=== PATIENT | male | born 1950 | race Caucasian/White ===

== ENCOUNTER 2024-08-18 06:04 | Inpatient (IN) | payer OTHER, SELFPAY ==
[2024-08-12 10:39] VITALS: BMI 31.1
[2024-08-18] VITALS (17 sets, daily range): BP systolic 113–140; BP diastolic 68–80; PULSE 64–88; RESP 12–20; TEMP 35.6–36.6; O2SAT 92–97; BMI 31.1
[2024-08-18] MEDS: ACETAMINOPHEN 325 MG TABLET 975 MG PO (06:49)
[2024-08-18] MEDS: LACTATED RINGERS 1,000 ML 42 ML IV ×2 (06:55→09:31)
--- NOTE | 2024-08-18 07:42 | PM.PREOP ---
Pre-operative Note Interval Note History & Physical reviewed/Exam performed by Physician: Yes Changes to H&P: No
[2024-08-18] MEDS: CEFAZOLIN 2 GM/100 ML PREMIX 100 ML IV ×3 (07:55→23:27)
--- NOTE | 2024-08-18 08:18 | SUR.OPER ---
Prone on spine table, head in foam head support, padded chest and pelvic supports, gel pad at knees, lower legs supported by pillows; nipples, genitalia and toes free of pressure, arms secured on foam padded arm boards at <90 degrees abduction. Tape over blanket at thigh secured to table.
[2024-08-18] MEDS: BUPIVACAINE 0.25% (PF) 60 ML, EPINEPHrine 0.15 MG INJ (08:22)
[2024-08-18] MEDS: BUPIVACAINE LIPOSOME 266 MG/20 ML VIAL INJ (09:42)
--- NOTE | 2024-08-18 09:58 | P.OP_ITS ---
Operative Date/Time/Diagnoses Date of procedure: 08/18/24 Time of procedure: 07:40 Pre-op diagnosis: 1. L3-4, L4-5 spinal stenosis 2. L4-5 history of laminectomy with bilateral foraminal stenosis Post-op diagnosis: same Procedure & Clinicians Procedure: 1. L4-5 Postero-lateral and posterior interbody fusion 2. L4-5 interbody cage placement. 3. L4-5 decompressive laminectomy with bilateral facetecomies 4. L4-5 Posterior non-segmental instrumentation 5. L3-4 left hemilaminectomy 6. [place] of bone marrow from iliac crest 7. Utilization of microsurgical technique and operating microscope Same procedure as scheduled: Yes Indications: Patient has been having chronic back pain and worsening lumbar radiculopathy. Patient was found to have significant central stenosis at L3-4 and severe bilateral foraminal stenosis at L4-5 correlating with his symptoms. Patient failed multiple conservative management with worsening pain weakness and numbness in his lower extremity. Patient has been having difficulty performing activity of daily living. After discussing risks benefits of treatment options, patient elected proceed with surgery. Surgeon: Sumeet Orellana Office Services Assistant: Yareli Garner Click Yes if Unassisted: No Anesthesia Type: General Operative Notes Closure Type: primary Specimen(s): none sent Prosthetic devices, grafts, tissues, transplants, or devices: Globus revolve screws, Rise cage Estimated Blood Loss (mL): 50 Blood products transfused: none Procedure in detail: Patient was seen in the preoperative area. Risks and benefits of the surgery was discussed with the patient. Informed consent was obtained from the patient and placed in the chart. Surgical site was marked. Patient was taken to the operative room. General anesthesia was administered. Prophylactic antibiotic was given to the patient less than 30 min before the incision was made. Patient was placed into a prone position on the Desmond table. Patient's back was then prepped and draped in the sterile fashion. Time-out was performed at this time. Using AP and lateral C-arm imaging the interval between L4-5 was identified and marked on patient's back. A 2 inch incision 2 in from midline was made on the left side first. The fascia was incised in line with skin incision. Globus MARS retractors was placed inside the incision and docked onto the L4 lamina. Using microsurgical technique and operating microscope, a L4 laminectomy and L4-5 facetectomy was performed using a Kerrison rongeur. The laminectomy and facetectomy was performed in order to decompress patient's cauda equina as well as the nerve roots exiting at the L4-5 level. The disc space at L4-5 was identified. And a total diskectomy was performed at [] level. The endplates were decorticated using a rasp and shaver. The total diskectomy and decortication was performed at L4-5 level in order to to accomplish a L4-5 fusion. The local bone from the laminectomy and facetectomy was saved for local bone grafting. After the total diskectomy and decortication was completed, Globus viacell bone graft material was combined with local bone that was harvested earlier. At this time, a separate skin is incision was made over the iliac crest. A Jamshidi needle was inserted into the iliac crest through a separate skin incision. 5 cc of bone marrow aspiration was obtained through the separate skin incision using a Jamshidi needle from the iliac crest. The bone marrow aspiration was combined with local bone and the via cell bone grafting material. The bone grafting material was placed into the L4-5 interbody space along with a expandable cage. The cage was expanded to its maximum height using the torque limiting screwdriver. At this time the MARS retractor was redirected over the L3 lamina. Using microsurgical technique and operating microscope, a L3-4 heminectomy was performed using the Kerrison rongeur. The ligamentum flavum was also resected at the side of the hemilaminectomy for further decompression of the epidural space. At this time a mirror image incision was made on the right side. The fascia was incised in line with the skin incision. Globus MARS retractor was inserted and docked onto the L4-5 posterolateral gutter. Using the power drill, posterior- lateral decortication was performed at L4-5 level until bleeding cortical bone was identified. The remaining bone grafting material was placed into the L4-5 posterior lateral gutter he order to accomplish posterolateral fusion at the L4-5 level. Using the double C-arm technique, pedicle screws were placed into the L4 and L5 pedicles bilaterally. This was done by placing the Jamshidi needle into the pedicles, then placing the guidewires over the Jamshidi needle, and finally placing the cannulated screws over the guidewires bilaterally. After the pedicle screws were placed, 2 titanium rods was locked into the heads of the pedicle screws using locking caps and torque limiting screwdriver. After all the hardware was placed, and confirmed with AP and lateral C-arm imaging, the wound was then irrigated with sterile normal saline and packed with Ray-Gaudencio gauze for 3 min to accomplish hemostasis. After the gauze was removed the deep fascia was closed with #1 Vicryl suture. The subcutaneous layer was closed with 2-0 Vicryl. The skin was closed with skin chano. Patient tolerated the procedure well. There were no complications. Neuro monitoring was utilized throughout the entire case. Patient has signal was stable throughout entire procedure without disturbance. The Operation could not have been safely performed without compromising the technical result or length of the procedure, without the assistance of a skilled dental assistant medical assistant. The dental assistant medical assistant was medically necessary for proper positioning, retraction and manipulation of instruments, proper exposure, surgi junie preparation, and manipulation of tissue. Complications: none Post-operative Condition: stable Disposition: PACU Plan for aftercare: Admit to inpatient hospital
--- NOTE | 2024-08-18 10:07 | DI.RAD.S_ITS ---
PROCEDURE: XR LUMBAR SPINE 2-3V INDICATIONS: L4-5 TLIF TECHNIQUE: Two views of the lumbar spine were acquired. COMPARISON: None. FINDINGS: AP and lateral digital images from the OR are submitted. L4-5 anterior/posterior fusion provided by interbody spacer, pedicle screws and short interbody struts appreciated. Alignment is anatomic. Moderate L2-3, L3-4 and L5-S1 degenerative disc and facet disease noted. IMPRESSION: L4-5 anterior/posterior fusion anatomic alignment. Dictated by: Priyank Henriquez M.D. on 08/19/2024 at 9:11 Approved by: Priyank Henriquez M.D. on 08/19/2024 at 9:13
[2024-08-18] MEDS: HYDROMORPHONE 1 MG INJ IV ×2 (10:15→10:20)
[2024-08-18] MEDS: hydrOXYzine 50 MG/ML INJ 25 MG IM (10:23)
[2024-08-18] MEDS: ONDANSETRON 4 MG/2 ML INJ IV (10:25)
[2024-08-18] MEDS: OXYCODONE IR 5 MG TABLET PO ×5 (10:27→22:18)
--- NOTE | 2024-08-18 13:50 | OT.IP.EVAL ---
Current Diagnoses Spinal stenosis, lumbar region without neurogenic claudication (08/18/24) Spinal stenosis, lumbosacral region (08/18/24) Other specified postprocedural states (08/18/24) Surgery Performed Operation Date: 08/18/24 07:45 Actual Procedures p L4-5 TLIF L3-4 hemilaminectomy - Sumeet Orellana MD Past Medical History (Last Updated 08/12/24 @ 12:07 by Anaid Estrella RN) BCC (basal cell carcinoma) Spinal stenosis Surgical History (Last Updated 08/12/24 @ 12:07 by Anaid Estrella RN) H/O right wrist surgery H/O: vasectomy History of ankle surgery Hx of hernia repair Hx of lithotripsy Hx of repair of right rotator cuff Hx of spinal surgery Hx of tonsillectomy Occupational Therapy Inpatient Evaluation/Re-Eval M1 PT/OT-IP Prior Functional Status Start: 08/18/24 13:25 Freq: NEEDED Status: Active Protocol: Document 08/18/24 16:03 CGR (Rec: 08/18/24 16:23 [id number] Medical Review Prior Functional Status Medical History Reviewed Yes Diet/Fluid Consistency Regular Communication WNLs Mobility and Gait I Activities of Daily Living and IADL's I Social History Household Members spouse Living Arrangements House Number of Floors (Floors) One Floor Number of Stairs To Enter/Railing? 2 steps and no rail to enter Home Environment High Toilet,Tub/Shower Home Equipment Front Wheel Walker,Straight Cane Employment Status Retired Additional Social History Comment Bed adjusts at the top M2 OT-IP Current Condition Start: 08/18/24 16:03 Freq: Status: Active Protocol: Document 08/18/24 16:03 CGR (Rec: 08/18/24 16:23 CGR [id number]) Occupational Therapy Current Condition Current Condition Evaluation Date 08/18/24 Treatment Diagnosis L3-4 and L4-5 TLIF Diagnosis Onset Date 08/18/24 Post Operative Precautions Lumbar Precautions Log Roll,No Twisting,Limit Bending,Lifting Restriction of 10 lbs,Gait Belt above Incisional Area M3 OT- IP Subjective and Pain Start: 08/18/24 16:03 Freq: Status: Active Protocol: Document 08/18/24 16:03 CGR (Rec: 08/18/24 16:23 CGR [id number]) OT- Subjective Occupational Therapy Visit Type Type Initial Evaluation Visit Start Time 13:26 Visit Stop Time 13:50 Notes Partial co-treat with P.T. OT Pain Assessment Pain When Pain Assessed During Mobility Pain Present Pain Present Pain Reported Location low back Intensity 5 Scale Used Numeric (0 - 10) Management Techniques Modification of Treatment,Re- positioning,Timing of Activity with Medications M4 OT- IP ADL's Start: 08/18/24 16:03 Freq: Status: Active Protocol: Document 08/18/24 16:03 CGR (Rec: 08/18/24 16:23 CGR [id number]) OT [id number]-Zobdyvy Comments OT Self-Feeding Comments Not meal time OT ADL-Grooming Comments OT Grooming Comments Not performed, pt lethargic OT ADL-Oral Care Comments Oral Care Comments Not performed, pt lethargic OT ADL-Dressing Comments OT Dressing Comments Not performed, pt lethargic OT ADL-Toileting General Evaluation Toileting Ability Standby Assistance Comments OT Toileting Comments seated on toilet for urination , pt left in bathroom with nursing aid at end of session. OT ADL-Bathing Comments OT Bathing Comments not performed M5 OT- IP IADL's Start: 08/18/24 16:03 Freq: Status: Active Protocol: Document 08/18/24 16:03 CGR (Rec: 08/18/24 16:23 CGR [id number]) OT-Instrumental Activities of Daily Living Deficits IADL Deficits Identified No Deficits Home Safety Awareness Awareness of Need for Assistance at Home Good Awareness Ability to Problem Solve Emergency Able to Problem Solve Situations Medication Management Medication Management No Deficits Identified Money Management Money Management No Deficits Identified Meal Preparation Meal Preparation Caregiver Provides Assist Mandrel Press Hand Mandrel Press Hand Caregiver Provides Assist Driving Driving Comments 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 M6 OT- IP Functional Cognition Start: 08/18/24 16:03 Freq: Status: Active Protocol: Document 08/18/24 16:03 CGR (Rec: 08/18/24 16:23 CGR [id number]) Cognitive Factors Limiting Selfcare Function Cognitive Ability Level of Alertness Alert,Drowsy Patient Orientation Name,Age,Birthday,Month,Date, Year,Day of Week,Place, Situation Attention Span Ability Capable of Focused Attention, Capable of Sustained Attention Ability to Follow Commands Able to Follow One Step Commands with Increased Time, Able to Follow One Step Commands with Repetition OT- Vision and Hearing OT- Hearing Assessment OT- Hearing Assessment WFL OT- Vision Assessment Visual Acuity Glasses For Reading Visual Attentiveness WFL Occular Pursuits WFL Visual Convergence WFL M7 OT- IP Mobility and Balance Start: 08/18/24 16:03 Freq: Status: Active Protocol: Document 08/18/24 16:03 CGR (Rec: 08/18/24 16:23 CGR [id number]) OT- Bed Mobility Assessment Rolling Type of Rolling Log Rolling,Roll to Left Level of Assistance Minimal Assistance Supine to Sit Supine to Sit Assist Standby Assistance Scooting Scooting to Edge of Bed Standby Assistance OT-Transfer Assessment Sit to and From Stand Sit to and from Stand Contact Guard Assistance, Minimal Assistance Transfers Transfer Ability Contact Guard Assistance, Minimal Assistance Technique Transfer Destination Bed,Chair,Toilet Transfer Technique Stand Step Pivot Devices Transfer Assistive Devices Gait Belt,Front Wheeled Walker Comments Mobility Comments Pt initially ambulated to the chair then later in the session states that he need to go to the toilet. Pt ambulated from chair to toilet and left sitting on toielt with nursing aid. OT- Gait Assessment Gait Gait Assistance Required: Contact Guard Assist,Minimum Assistance Assistive Devices Assistive Device Gait Belt,Front Wheeled Walker Comments Gait Ability Comments Mobility in the room OT- Balance Assessment Sitting Balance and Reactions Static Sitting Balance Ability Normal Dynamic Sitting Balance Ability Normal M8 OT- IP Objective Assessments Start: 08/18/24 16:03 Freq: Status: Active Protocol: Document 08/18/24 16:03 CGR (Rec: 08/18/24 16:23 CGR [id number]) OT Gross Range of Motion Upper Extremity Range of Motion Assessment Within Functional Limits OT Strength Upper Extremity Strength Assessment Within Functional Limits Comments Strength Comments grossly 4+/5 OT- Coordination Assessment Upper Extremity Finger to Nose Test Within Functional Limits Finger Tapping Test Within Functional Limits OT-Muscle Tone Assessment Muscle Tone WNL Yes OT Sensation Assessment Edema Edema Absent M9 OT- IP Assessment and Plan Start: 08/18/24 16:03 Freq: Status: Active Protocol: Document 08/18/24 16:03 CGR (Rec: 08/18/24 16:23 CGR [id number]) OT Summary Assessment and Plan Potential Rehabilitation Potential Excellent Analytic Complexity at Evaluation Moderate Summary OT Impairments Pain,Balance,Functional Cognition,Functional Mobility, Grooming,Dressing,Toileting, Bathing,Toilet Transfers, Shower Transfers,Activity Tolerance Progress Towards Goals Progressing Toward Goals Assessment Summary Pt presents as a moderate complexity evaluation s/p admit for planned L3-4 and L4- 5 TLIF. Pt is moving well after sx with manageable pain. Pt's present and supportive. Plan is for discharge home tomorrow. Pt will need LB dressing training and review of back precautions as he was groggy in todays session. Goals Self-Feeding Goal Independent Grooming Goal Independent Dressing Goal Independent,Barrer And Tacker,Sock Aid Toileting Goal Independent Bathing Goal Independent Toilet Transfer Goal Independent Shower Transfer Goal Independent Days to Meet Goals 2 Frequency of Treatment Other frequency 5x per week Treatment Plan OT Treatment Plan ADL Training,Functional Mobility,Patient/Family Education,Discharge Planning Other Treatment Recommendations and Next LB dressing with DME, review Treatment Focus back precautions Discharge Recommendations OT Discharge Recommendations Home with Assistance Transportation Needs at Discharge Private Vehicle
--- NOTE | 2024-08-18 13:55 | PT.IIE ---
Current Diagnoses Spinal stenosis, lumbar region without neurogenic claudication (08/18/24) Spinal stenosis, lumbosacral region (08/18/24) Other specified postprocedural states (08/18/24) Surgery Performed Operation Date: 08/18/24 07:45 Actual Procedures p L4-5 TLIF L3-4 hemilaminectomy - Sumeet Orellana MD Surgical History (Last Updated 08/12/24 @ 12:07 by Anaid Estrella RN) H/O right wrist surgery H/O: vasectomy History of ankle surgery Hx of hernia repair Hx of lithotripsy Hx of repair of right rotator cuff Hx of spinal surgery Hx of tonsillectomy Medical History (Last Updated 08/12/24 @ 12:07 by Anaid Estrella RN) BCC (basal cell carcinoma) Spinal stenosis Physical Therapy Inpatient Evaluation/Re-Eval M1 PT/OT-IP Prior Functional Status Start: 08/18/24 13:25 Freq: NEEDED Status: Active Protocol: Document 08/18/24 13:25 MB (Rec: 08/18/24 13:55 MB [id number]) Medical Review Prior Functional Status Medical History Reviewed Yes Diet/Fluid Consistency Regular Communication WNLs Mobility and Gait I Activities of Daily Living and IADL's I Social History Household Members spouse Living Arrangements House Number of Floors (Floors) One Floor Number of Stairs To Enter/Railing? 2 steps and no rail to enter Home Environment High Toilet,Tub/Shower Home Equipment Front Wheel Walker,Straight Cane Employment Status Retired Additional Social History Comment Bed adjusts at the top M2 PT-IP Current Condition Start: 08/18/24 13:25 Freq: NEEDED Status: Active Protocol: Document 08/18/24 13:25 MB (Rec: 08/18/24 13:55 MB [id number]) Physical Therapy Current Condition Current Condition Evaluation Date 08/18/24 Treatment Diagnosis L3-4 hemilaminectomy and L4-5 TLIF M3 PT-IP Subjective Start: 08/18/24 13:25 Freq: NEEDED Status: Active Protocol: Document 08/18/24 13:25 MB (Rec: 08/18/24 13:55 MB [id number]) Subjective Physical Therapy Visit Type Type Initial Evaluation Visit Start Time 13:25 Visit Stop Time 13:[address] COLLECTIONS OFFICER Visits 0 Physical Therapy Visit Comments Patient Comments Pt is agreeable to OOB and mobility. Therapy Pain Assessment Pain When Pain Assessed At Rest Pain Present Pain Present Pain Reported Location low back Intensity 5 Scale Used Numeric (0 - 10) M4 PT-IP Mobility and Gait Start: 08/18/24 13:25 Freq: NEEDED Status: Active Protocol: Document 08/18/24 13:25 MB (Rec: 08/18/24 13:55 MB [id number]) PT-Bed Mobility Assessment Rolling Type of Rolling Log Rolling,Roll to Left Level of Assist Contact Guard Assistance Supine to Sit Supine to Sit Contact Guard Assistance,1 Person Assistance,Head of Bed Elevated,Bedrails Scooting Scooting to Edge of Bed Contact Guard Assistance PT-Transfer Assessment Sit to and From Stand Sit to and from Stand Minimal Assistance Equipment Transfer Assistive Device Gait Belt,Front Wheeled Walker Orthotic/Prosthetic Devices or Brace: No Transfers Transfer Destination Chair Transfer Technique Stepping Transfer Ability Level of Assist Minimal Assistance,1 Person Assistance,Use of Upper Extremities Comments Mobility Comments BP and HR in RUE: supine 133/ 77, 84; standing machine does not read; standing 1' 125/78, 95. Gait Assessment Gait Gait Assistance Required: Minimum Assistance Distance (Feet) 3 Able to Maintain Weight Bearing Status Yes During Gait Assistive Devices Assistive Device Gait Belt,Front Wheeled Walker Orthotic/Prosthetic Devices or Brace: No Gait Deviations General Gait Pattern Antalgic,Decreased Stride Length,Decreased Feet Clearance,Step-to Gait,Wide Based Gait Factors Limiting Gait Function Factors Limiting Gait Function Decreased Activity Tolerance, Difficulty Following Directions,Limited Range of Motion,Pain,Poor Balance PT-Balance Assessment Sitting Balance and Reactions Static Sitting Balance Ability Good Dynamic Sitting Balance Ability Fair Standing Balance and Reactions Static Standing Balance Ability Good Dynamic Standing Balance Ability Fair Device Used RW M5 PT-IP Objective Assessments Start: 08/18/24 13:25 Freq: NEEDED Status: Active Protocol: Document 08/18/24 13:25 MB (Rec: 08/18/24 13:55 MB [id number]) Orientation Orientation/Cognition Level of Alertness Alert Orientation Name,Age,Birthday,Month,Date, Year,Place,Situation Language Function Ability No Deficits Noted Safety Awareness Decreased Safety Awareness Memory Description No Deficits Noted Gross Range of Motion Upper Extremity ROM Impairments Defer to OT Lower Extremity ROM Assessment Within Functional Limits Strength Lower Extremity Strength Assessment Within Functional Limits Comments Strength Comments LE ROM and strength functionally assessed and are normal today Coordination Assessment Gross Coordination Gross Coordination Impaired Assessment Coordination Comments Slow movement post-op Sensation Assessment Comments Sensation Comments Denies paresthesias post-op Muscle Tone Muscle Tone WNL Yes M6 PT-IP Treatment Start: 08/18/24 13:25 Freq: NEEDED Status: Active Protocol: Document 08/18/24 13:25 MB (Rec: 08/18/24 13:55 MB [id number]) Physical Therapy Treatment Exercises Exercises Ankle Pumps Education Education Provided Precautions,Post-Op Packet, Safety M7 PT-IP Assessment and Plan Start: 08/18/24 13:25 Freq: NEEDED Status: Active Protocol: Document 08/18/24 13:25 MB (Rec: 08/18/24 13:55 MB [id number]) PT Summary Assessment and Plan Potential Rehabilitation Potential Good Status of Condition at Evaluation Evolving Summary Impairments Pain,ROM,Balance,Coordination, Bed Mobility,Transfers,Gait, Activity Tolerance Progress Towards Goals Progressing Toward Goals Assessment Summary Pt is a gentleman who is s/p L3-4 hemilaminectomy and L4-5 TLIF this date. He moves well post-op and is not orthostatic . He moves slowly and requires cues for log rolling and hand placement and CGA to min A for mobility with stepping to chair this afternoon. Reviewed back precautions and provided back folder to pt and . Recommend OOB to chair and BR with nsg and rolling walker, up for meals. Goals Bed Mobility Goal Independent Transfer Goal Independent,Front Wheeled Walker Gait Goal Independent,Front Wheel Walker Gait Distance 100 Other Goals Pt will ascend and descend 2 steps with LRAD and no more than CGA to allow safe home entrance. Days to Meet Goals 5 Frequency of Treatment Frequency Of Treatment Twice a Day Treatment Plan Physical Therapy Treatment Plan Bed Mobility Training,Transfer Training,Gait Training, Therapeutic Exercise,Balance Retraining,Post Op Education, Discharge Planning,Hot or Cold Pack,Neuromuscular Re-ed, Coordination Retraining,Manual Therapy Precautions Lumbar Precautions Log Roll,No Twisting,Limit Bending,Lifting Restriction of 10 lbs,Gait Belt above Incisional Area Recommendations To Nursing Amount of Assist Needed 1 Person Assist Discharge Recommendations PT Discharge Recommendations Home with Assistance, Outpatient PT Transportation Needs at Discharge Private Vehicle
[2024-08-18] MEDS: ACETAMINOPHEN 325 MG TABLET 650 MG PO ×2 (14:05→20:08)
--- NOTE | 2024-08-18 19:16 | PC.NURSE ---
Patient arrived from PACU to room 21o at 11 a.m. He is A&OX4, VSS, afebrile on 2 LNC initially. He is encouraged to use IS, and ambulates without difficulty to the bathroom. He is weaned to RA. Dressing to back is bulky with slight shadow drainage. He reports pain is well controlled with PRN po oxycodone this afternoon and evening.
[2024-08-18] MEDS: SENNOSIDES 8.6 MG TABLET 17.2 MG PO (20:08)
[2024-08-18] MEDS: DOCUSATE 100 MG CAPSULE PO (20:08)
[2024-08-18] MEDS: SODIUM CHLORIDE 0.9% FLUSH 10 ML IV (22:20)
--- NOTE | 2024-08-19 00:50 | PC.NURSE ---
Addendum entered by Loretta Ford R.N. 08/19/24 00:54: Patient awake, alert and oriented, 92% on 1.5L via nasal cannula. Original Note: Assumed care of patient at 00:30. Prior nurse, Umu, JAZMIN completed assessment.
[2024-08-19] MEDS: OXYCODONE IR 5 MG TABLET PO ×3 (01:41→08:30)
--- NOTE | 2024-08-19 07:16 | PM.DS.1 ---
History of Present Illness History of Present Illness Date Patient Seen: 08/19/24 Time Patient Seen: 07:16 Chief complaint: Back pain Narrative: back pain is moderate. Denies fever or chills. No nausea or vomiting. Patient has been up 1 since surgery to use the restroom. Patient able to urinate on his Own. Patient does have assistance at home. Discharge Providers Provider Date of admission: 08/18/24 06:04 Discharge Date: 08/19/24 Primary care physician: Junito Lopez DO Consults: 08/18/24 10:53 Consult to Occupational Therapy Evaluate & Treat Comment: Physician Instructions: Evaluate and treat Consult to Physical Therapy Evaluate & Treat Comment: Physician Instructions: Evaluate and Treat Discharge provider: Ajay Montalvo PA-C Exam Vital Signs (past 8 hours): Fraction of Inspired Oxygen 28 SaO2/FiO2 Ratio 335 Oxygen Delivery Method Nasal Cannula Oxygen Flow Rate 1.5 Narrative Exam Narrative: 73-year-old male resting comfortably in bed in no apparent distress. Neurovascular status is intact bilateral lower extremities. Const General: cooperative and comfortable Nutritional Appearance: average body habitus Orientation: alert Resp Effort & Inspection: normal respiratory effort and able to speak in complete sentences [facility] Medical History BCC (basal cell carcinoma) Spinal stenosis Surgical History Hx of spinal surgery Hx of repair of right rotator cuff H/O right wrist surgery History of ankle surgery Hx of tonsillectomy Hx of lithotripsy H/O: vasectomy Hx of hernia repair Social History household members: spouse Smoking Status: Former smoker alcohol intake: current Discharge Assessment & Plan Assessment and Plan Assessment: Patient progressing as expected Plan of Treatment: mobilize with physical therapy, limit bending, twisting, lifting multimodal pain management discharge home today after physical therapy if safe for home environment Discharge Plan Discharge Plan Patient Disposition: Home Discharge orders & Medications Prescriptions: New acetaminophen 325 mg Tablet 650 mg PO Q6H PRN (Reason: Fever/Mild Pain (1-3)) Qty: 60 0RF polyethylene glycol 3350 17 gram Powder In Packet 17 g PO DAILY PRN (Reason: Constipation) Qty: 14 0RF oxycodone 5 mg Tablet 5 mg PO Q3H PRN (Reason: Pain, Moderate (4-6)) Qty: 30 0RF Continued aspirin 81 mg Capsule 81 mg PO DAILY Follow up/Referrals: Junito Lopez DO [Primary Care Provider] - Sumeet Orellana MD [Physician] - 09/04/24 1:10 pm Diet/Activity/Treatments Diet: Diet as Tolerated Activity: No deep bending or twisting at the waist. No lifting more than 10 pounds. Skin/Wound/Dressing Care Report to your healthcare provider any signs of infection, such as:: chills, fever, night sweats, unusual drainage and unusual redness Dressing: May shower. If dressings become wet or dirty, may remove and replace with clean, dry gauze. No bathing or otherwise soaking incisions. Do not apply any creams, lotions, or ointments to incisions. Visit Report/Discharge Packet Instructions: DI for Prescription Opioid Use, DI for Transforaminal Lumbar Interbody Fusion Stand Alone Forms: Patient Portal/API, Stroke Signs & Symptoms, Surgery Discharge Discharge Data Primary Care Provider: Junito Lopez Quality VTE Deep Vein Thrombosis/Pulmonary Embolism Present on Admission: No
[2024-08-19 08:00] VITALS: BP 136/77; PULSE 81; RESP 16; TEMP 36.5; O2SAT 96
[2024-08-19] MEDS: DOCUSATE 100 MG CAPSULE PO (08:30)
[2024-08-19] MEDS: ACETAMINOPHEN 325 MG TABLET 650 MG PO (08:30)
--- NOTE | 2024-08-19 08:55 | PT.IPTN ---
Current Diagnoses Spinal stenosis, lumbar region without neurogenic claudication (08/18/24) Spinal stenosis, lumbosacral region (08/18/24) Other specified postprocedural states (08/18/24) Surgery Performed Operation Date: 08/18/24 07:45 Actual Procedures p L4-5 TLIF L3-4 hemilaminectomy - Sumeet Orellana MD Physical Therapy Treatment Note M2 PT-IP Current Condition Start: 08/18/24 13:25 Freq: NEEDED Status: Active Protocol: Document 08/18/24 13:25 MB (Rec: 08/18/24 13:55 MB [id number]) Physical Therapy Current Condition Current Condition Evaluation Date 08/18/24 Treatment Diagnosis L3-4 hemilaminectomy and L4-5 TLIF M3 PT-IP Subjective Start: 08/18/24 13:25 Freq: NEEDED Status: Active Protocol: Document 08/19/24 09:18 TS (Rec: 08/19/24 09:25 TS [id number]) Subjective Physical Therapy Visit Type Type Treatment Note Visit Start Time 08:55 Visit Stop Time 09:18 Number of TOPSTITCHER LOCKSTITCH Visits 1 Physical Therapy Visit Comments Patient Comments Pt found resting in the chair, reports pain is 4/10, he is agreeable to PT. Therapy Pain Assessment Pain When Pain Assessed During Mobility Pain Present Pain Present Pain Reported Location low back Intensity 4 Scale Used Numeric (0 - 10) M4 PT-IP Mobility and Gait Start: 08/18/24 13:25 Freq: NEEDED Status: Active Protocol: Document 08/19/24 09:18 TS (Rec: 08/19/24 09:25 TS [id number]) PT-Transfer Assessment Sit to and From Stand Sit to and from Stand Contact Guard Assistance,1 Person Assistance Equipment Transfer Assistive Device Gait Belt,Front Wheeled Walker Orthotic/Prosthetic Devices or Brace: No Comments Mobility Comments Pt recalls 2/3 spinal precautions(no lifting). STS with FWW CGA. Pt ambulates ~ 100'SBA with FWW. He performs stairs x2 with SPC and SEAM SEWER from spouse. Pt was let back in the chair, all needs met. Gait Assessment Gait Gait Assistance Required: Standby Assistance Distance (Feet) 100 Able to Maintain Weight Bearing Status Yes During Gait Assistive Devices Assistive Device Gait Belt,Front Wheeled Walker Orthotic/Prosthetic Devices or Brace: No Gait Deviations General Gait Pattern Antalgic,Decreased Stride Length,Decreased Feet Clearance,Step-to Gait,Wide Based Gait Factors Limiting Gait Function Factors Limiting Gait Function Decreased Activity Tolerance, Difficulty Following Directions,Limited Range of Motion,Pain,Poor Balance Stair Climbing Assessment Evaluation Level of Assist On Stairs Contact Guard Assistance,1 Person Assistance Devices Stair Climbing Assistive Devices Straight Cane Technique/Endurance Stair Climbing Direction Ascend and Descend Stair Climbing Technique Step to Step Number of Steps Climbed 2 PT-Balance Assessment Sitting Balance and Reactions Static Sitting Balance Ability Normal Dynamic Sitting Balance Ability Normal Standing Balance and Reactions Static Standing Balance Ability Good Dynamic Standing Balance Ability Fair Device Used RW M5 PT-IP Objective Assessments Start: 08/18/24 13:25 Freq: NEEDED Status: Active Protocol: Document 08/18/24 13:25 MB (Rec: 08/18/24 13:55 MB [id number]) Orientation Orientation/Cognition Level of Alertness Alert Orientation Name,Age,Birthday,Month,Date, Year,Place,Situation Language Function Ability No Deficits Noted Safety Awareness Decreased Safety Awareness Memory Description No Deficits Noted Gross Range of Motion Upper Extremity ROM Impairments Defer to OT Lower Extremity ROM Assessment Within Functional Limits Strength Lower Extremity Strength Assessment Within Functional Limits Comments Strength Comments LE ROM and strength functionally assessed and are normal today Coordination Assessment Gross Coordination Gross Coordination Impaired Assessment Coordination Comments Slow movement post-op Sensation Assessment Comments Sensation Comments Denies paresthesias post-op Muscle Tone Muscle Tone WNL Yes M6 PT-IP Treatment Start: 08/18/24 13:25 Freq: NEEDED Status: Active Protocol: Document 08/19/24 09:18 TS (Rec: 08/19/24 09:25 TS [id number]) Physical Therapy Treatment Education Education Provided Precautions,Post-Op Packet, Safety M7 PT-IP Assessment and Plan Start: 08/18/24 13:25 Freq: NEEDED Status: Active Protocol: Document 08/19/24 09:18 TS (Rec: 08/19/24 09:25 TS [id number]) PT Summary Assessment and Plan Potential Rehabilitation Potential Good Summary Impairments Pain,ROM,Balance,Coordination, Bed Mobility,Transfers,Gait, Activity Tolerance Progress Towards Goals Progressing Toward Goals Assessment Summary Osito is doing well with his mobility. He is CGA for STS. He progressed his gait to ~100 'SBA with fWW. He performed steps x2 with SPC and SEAM SEWER from spouse. Pt required cues for spinal precaution of no lifting. PT is recommending pt return home with assist. Goals Bed Mobility Goal Independent Transfer Goal Independent,Front Wheeled Walker Gait Goal Independent,Front Wheel Walker Gait Distance 100 Other Goals Pt will ascend and descend 2 steps with LRAD and no more than CGA to allow safe home entrance. Days to Meet Goals 5 Frequency of Treatment Frequency Of Treatment Twice a Day Treatment Plan Physical Therapy Treatment Plan Bed Mobility Training,Transfer Training,Gait Training, Therapeutic Exercise,Balance Retraining,Post Op Education, Discharge Planning,Hot or Cold Pack,Neuromuscular Re-ed, Coordination Retraining,Manual Therapy Precautions Lumbar Precautions Log Roll,No Twisting,Limit Bending,Lifting Restriction of 10 lbs,Gait Belt above Incisional Area Recommendations To Nursing Amount of Assist Needed 1 Person Assist Discharge Recommendations PT Discharge Recommendations Home with Assistance, Outpatient PT Transportation Needs at Discharge Private Vehicle
--- NOTE | 2024-08-19 11:03 | OT.IP.TRT ---
Current Diagnoses Spinal stenosis, lumbar region without neurogenic claudication (08/18/24) Spinal stenosis, lumbosacral region (08/18/24) Other specified postprocedural states (08/18/24) Surgery Performed Operation Date: 08/18/24 07:45 Actual Procedures p L4-5 TLIF L3-4 hemilaminectomy - Sumeet Orellana MD Occupational Therapy Treatment Note M2 OT-IP Current Condition Start: 08/18/24 16:03 Freq: Status: Active Protocol: Document 08/18/24 16:03 CGR (Rec: 08/18/24 16:23 CGR [id number]) Occupational Therapy Current Condition Current Condition Evaluation Date 08/18/24 Treatment Diagnosis L3-4 and L4-5 TLIF Diagnosis Onset Date 08/18/24 Post Operative Precautions Lumbar Precautions Log Roll,No Twisting,Limit Bending,Lifting Restriction of 10 lbs,Gait Belt above Incisional Area M3 OT- IP Subjective and Pain Start: 08/18/24 16:03 Freq: Status: Active Protocol: Document 08/19/24 10:14 NASRA (Rec: 08/19/24 10:19 NASRA [id number]) OT- Subjective Occupational Therapy Visit Type Type Treatment Note Visit Start Time 09:50 Visit Stop Time 10:10 Notes Pt sitting up in chair on entrance of OT. Pt agreeable to participating in skilled OT services especially for LB dressing with AE due to lumbar precautions. Pt able to state lumbar precautions. Occupational Therapy Visit Comments Patient Comments Pt and spouse say they are eager to d/c home and feel that they have all they need to safely perform. OT Pain Assessment Pain When Pain Assessed After Treatment Pain Present Pain Present Denied Pain M4 OT- IP ADL's Start: 08/18/24 16:03 Freq: Status: Active Protocol: Document 08/19/24 10:14 NASRA (Rec: 08/19/24 10:19 NASRA [id number]) OT ADL-Grooming Comments OT Grooming Comments pt declined grooming. OT discussed standing upright at sink and not bending forward while performing grooming tasks. OT ADL-Oral Care Comments Oral Care Comments pt declined oral hygine. OT educated pt on using spit basin instead of bending forward at sink. pt verbalizes understanding OT ADL-Dressing General Eval Upper Body Dressing Ability Standby Assistance Lower Body Dressing Ability Standby Assistance Areas Needing Assistance Retrieving/Set-up of Clothing Assistive Devices Dressing Assistive Devices Penal Officer,Sock Aid Comments OT Dressing Comments pt was able to don/doff UB clothing with items presented to him. OT educated pt on use of sock aid and public health teacher for LB dressing. Pt and spouse state that spouse will probably assist on d/c, but pt was willing to practice with equipment. pt donned under wear and pajama pants with public health teacher and vcs, during sit to stand pt maintains precautions and demonstrates good-normal balance. pt donned socks using sock aid and vcs. OT ADL-Bathing Comments OT Bathing Comments pt prefers to perform sponge bath on d/c home M5 OT- IP IADL's Start: 08/18/24 16:03 Freq: Status: Active Protocol: Document 08/18/24 16:03 CGR (Rec: 08/18/24 16:23 CGR [id number]) OT-Instrumental Activities of Daily Living Deficits IADL Deficits Identified No Deficits Home Safety Awareness Awareness of Need for Assistance at Home Good Awareness Ability to Problem Solve Emergency Able to Problem Solve Situations Medication Management Medication Management No Deficits Identified Money Management Money Management No Deficits Identified Meal Preparation Meal Preparation Caregiver Provides Assist Research Engineer Marine Equipment Research Engineer Marine Equipment Caregiver Provides Assist Driving Driving Comments 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 M6 OT- IP Functional Cognition Start: 08/18/24 16:03 Freq: Status: Active Protocol: Document 08/18/24 16:03 CGR (Rec: 08/18/24 16:23 CGR [id number]) Cognitive Factors Limiting Selfcare Function Cognitive Ability Level of Alertness Alert,Drowsy Patient Orientation Name,Age,Birthday,Month,Date, Year,Day of Week,Place, Situation Attention Span Ability Capable of Focused Attention, Capable of Sustained Attention Ability to Follow Commands Able to Follow One Step Commands with Increased Time, Able to Follow One Step Commands with Repetition OT- Vision and Hearing OT- Hearing Assessment OT- Hearing Assessment WFL OT- Vision Assessment Visual Acuity Glasses For Reading Visual Attentiveness WFL Occular Pursuits WFL Visual Convergence WFL M7 OT- IP Mobility and Balance Start: 08/18/24 16:03 Freq: Status: Active Protocol: Document 08/19/24 10:14 NASRA (Rec: 08/19/24 10:19 [facility] [id number]) OT-Transfer Assessment Sit to and From Stand Sit to and from Stand Standby Assistance Transfers Transfer Ability Standby Assistance Technique Transfer Destination Chair Devices Transfer Assistive Devices Gait Belt,Front Wheeled Walker Comments Mobility Comments pt performs sit<>stand several times with S. pt maintains lumbar precautions and demonstrates good safety. OT- Balance Assessment Sitting Balance and Reactions Static Sitting Balance Ability Normal Dynamic Sitting Balance Ability Good Standing Balance and Reactions Static Standing Balance Ability Good Dynamic Standing Balance Ability Good M8 OT- IP Objective Assessments Start: 08/18/24 16:03 Freq: Status: Active Protocol: Document 08/18/24 16:03 CGR (Rec: 08/18/24 16:23 CGR [id number]) OT Gross Range of Motion Upper Extremity Range of Motion Assessment Within Functional Limits OT Strength Upper Extremity Strength Assessment Within Functional Limits Comments Strength Comments grossly 4+/5 OT- Coordination Assessment Upper Extremity Finger to Nose Test Within Functional Limits Finger Tapping Test Within Functional Limits OT-Muscle Tone Assessment Muscle Tone WNL Yes OT Sensation Assessment Edema Edema Absent M9 OT- IP Assessment and Plan Start: 08/18/24 16:03 Freq: Status: Active Protocol: Document 08/19/24 10:14 NASRA (Rec: 08/19/24 10:19 [facility] [id number]) OT Summary Assessment and Plan Potential Rehabilitation Potential Excellent Analytic Complexity at Evaluation Moderate Summary OT Impairments Pain,Balance,Functional Cognition,Functional Mobility, Grooming,Dressing,Toileting, Bathing,Toilet Transfers, Shower Transfers,Activity Tolerance Assessment Summary Pt was pleasant and cooperative and willing to participate in skilled OT services. Pt states lumbar precautions and demonstrates them throughout tx session. Pt and spouse agree that spouse will likely assist with LB ADL needs as opposed to using LB AE. Pt verbalizes understanding of all recommendations with respect to precautions and ADLs. Pt demonstrates all dressing tasks with S. Pt left up in chair with all needs met and in reach. Cont per POC. Goals Self-Feeding Goal Independent Grooming Goal Independent Dressing Goal Independent,Penal Officer,Sock Aid Toileting Goal Independent Bathing Goal Independent Toilet Transfer Goal Independent Shower Transfer Goal Independent Days to Meet Goals 2 Frequency of Treatment Other frequency 5x per week Treatment Plan OT Treatment Plan ADL Training,Functional Mobility,Patient/Family Education,Discharge Planning Other Treatment Recommendations and Next LB dressing with DME, review Treatment Focus back precautions Discharge Recommendations OT Discharge Recommendations Home with Assistance Transportation Needs at Discharge Private Vehicle
--- NOTE | 2024-08-19 14:36 | CM.DANOTE ---
Initial DCP Assessment Visit Note Reviewed EMR and team rounds for status updates. POLICE CADET was unable to meet with pt f/f prior to his d/c due to triage needs on the floor. Pt lives independently at baseline with his spouse in [place], his spouse was also available to transport him home today after he was medically cleared for d/c. No CM d/c needs or resources were identified during his stay. Payor: [place] Lamar Attending: Dr. Orellana Pt is a 73 year-old M with a hx of worsening R-lower back/buttock/leg pain that has not improved with conservative measures, or his recent injection in December of this year. He does not use an AD at baseline, however now has all necessary DME in place at home for post-op recovery needs. His will be providing care and assistance needs. Pt does have a plan for OP PT and Ortho f/u visits. Discharge Planning/Care Management Advanced directive, confirm from FAMILY Start: 08/18/24 11:13 Freq: Q24H Status: Active Protocol: Document 08/19/24 11:13 CEW (Rec: 08/19/24 11:48 CEW [id number]) Advance Directive, confirm on record Time 11:48 Person contacted pt Copy received No CM Discharge Assessment Start: 08/19/24 14:34 Freq: Status: Active Protocol: Document 08/19/24 14:35 DPL (Rec: 08/19/24 14:36 DPL [id number]) Discharge Planning Assessment Assigned Interactive Developer [place] Advance Directives? Yes Advance Directives on File No History Provided By Medical Record Expected Length of Stay 1 Has Patient been admitted in last 30 No days? Prior Living Arrangements House Household Members spouse Type of transporation used prior to Drives own vehicle admit Independent with ADL's Yes Is patient alert and oriented? Yes Comment N/A Caregiver for Another No DME Already Rented / Owned Elevated Toilet Seat,FWW / Walker,Cane Patient/Family Preference OP PT Therapy Barriers to Discharge No Discharge Plan Home Transportation Arrangement Spouse Referrals Initiated None needed Review Status In Process Please Provide Date Initial DC 08/19/24 Assessment Was Performed Pre-Anesthesia Assessment Start: 08/12/24 10:39 Freq: Status: Active Protocol: Document 08/12/24 10:39 CAB (Rec: 08/12/24 10:51 CAB [id number]) Pre-Anesthesia Assessment PAC Comment Phone assessment Patient Information Reviewed Via Phone Assessment Diagnostic Results EKG Comment Outside EKG scanned, Cholesterol labs only sent Primary Care Provider Junito Lopez Seen Specialist in Last 12 Months Yes Specialist Seen Orthopedist,Urologist Primary Language Hungarian Drum Saw Operator Required No Height 182.88 cm Weight 104.326 kg Body Mass Index (BMI) 31.1 Hearing Ability Normal Visual Assist Magnifying Glass Dentition Type Partial- Lower,Full- Upper Barriers to Learning None Hx Anesthesia Reactions No Hx Family Anesthesia Reaction No Hx Malignant Hyperthermia No Hx Blood Transfusions No Anesthesia Review Requested No Gas Appliance Repairer No alcohol intake former Smoking Status Former smoker how long ago did patient quit smoking 1989 Substance Use Type does not use Pain Present Pain Reported Musculoskeletal Symptoms Abnormal Gait,Back Pain, Difficulty Walking History of Falling (Recent or History of No ) Patient is completely paralyzed or No completely immobile Mental Status Oriented to own ability Is patient on oxygen? No Does patient have BENAVIDEZ/SOB No Hx Sleep Apnea No Currently Taking a Beta Paul No Can You Climb a Flight of Stairs Without Yes SOB Hx Chest Pain No Hx SOB No Hx Syncope or Dizziness No Anti-Coagulant Therapy No Has a Executive Business Coach No Cardiac Testing No Hx Pacemaker/ICD No Pacemaker Rep Required? No Diet Type At Home Regular Dysphagia No Gastrointestinal Symptoms None Urinary Catheter Present No Hx Urinary Self Catheterization No Diabetes No Hx Drug Resistant Organism No Presence of External or Internal Medical No Devices Comment No Covid symptoms x 2 months Marital Status Lives With spouse Current Living Arrangements House Number of Floors (Floors) One Floor Number of Stairs To Enter/Railing? 2 Support System Spouse Does the Patient Have Assistance After Yes Surgery Patient Discharge Plan Description Return Home Comment Pt advised overnight length of stay per surgeon Feels Safe in Current Environment Yes Been Physically Hurt or Threatened By a No Person in Current Environment Do you have thoughts of harming yourself None or others? Are you currently considering suicide? No Do you have a plan to hurt yourself or No Plan others? Do You Have Any Spiritual Beliefs That No May Affect Your HC Choices? Do You Have Any Cultural Practices That No May Affect Your HC Choices? Comment Confucianism Who Can We Speak to About Patient's Care Family, friends Identifying Code for Release of Patient Declines to issue Information Health Care Proxy/Next of Kin Arlet Craft () Health Care Proxy Emergency Contact Name Arlet Craft () Emergency Contact Advance Directives? Yes Advance Directives on File No Requested Patient Bring Advanced Yes Directives DOS Power of Ornamental Rail Installer Yes Power of Ornamental Rail Installer Name Arlet Craft () Power of Ornamental Rail Installer PAC Instructions Assistance for 24 hours post- op,Durable medical equipment, Medications to take/avoid, Nasal antibiotic,No ETOH/ petroleum product on skin DOS, NPO,Pre-surgical wash,Sturdy shoes/comfortable clothes,Do not bring valuables and remove jewelry
--- NOTE | 2024-08-19 14:55 | PC.NURSE ---
Pt feels ready to d/c to home. PA came to see p-t. They gave him there discharge instructions. Physical therapy also came to see pt and passed hiim safe to go. Has been voiding w/out difF. Tolerates diet w/out problemsa. Reviewed d/c packet w/pt and questions answered. Pt d/c to home via auto with family.
== END 2024-08-19 13:15 | disposition home or self-care (01) | DRG 402 ==
PROVIDERS: Admitting Provider Orthopaedic Surgery Orthopaedic Surgery of the Spine; PCP Family Medicine; Referring Provider Orthopaedic Surgery Orthopaedic Surgery of the Spine; Visit Provider Orthopaedic Surgery Orthopaedic Surgery of the Spine
PROC: 0SG00AJ Fusion of Lumbar Vertebral Joint with Interbody Fusion Device, Posterior Approach, Anterior Column, Open Approach (ICD-10-PCS; principal; 2024-08-18 07:45)
DX: M48.061 Spinal stenosis, lumbar region without neurogenic claudication (principal); M54.16 Radiculopathy, lumbar region; Z98.890 Other specified postprocedural states; Z87.891 Personal history of nicotine dependence
CPT/HCPCS: 72100; 76000; 97116; 97161; 97166; 97530; 97535; C9290; J0171; J0330; J0690; J1100; J1171; J2405; J2704; J3010; J3410